=== PATIENT | male | born 1980 | race African-American/Black ===

== ENCOUNTER 2021-04-16 20:45 | Emergency (ER) | payer BC, SELFPAY ==
[2021-04-16] MEDS ORDERED: Ondansetron ODT 4 MG TAB ONE (21:48)
[2021-04-16 23:01] LABS: SARS-CoV-2 NAA Rapid Test Not Detected (NotDetected)
== END 2021-04-16 22:33 | disposition home or self-care (01) ==
LOC: CSHERS 20:45
DX: J39.9 Disease of upper respiratory tract, unspecified (principal); R11.2 Nausea with vomiting, unspecified; R19.7 Diarrhea, unspecified; Z20.822 Contact with and (suspected) exposure to COVID-19
CPT/HCPCS: 0240U; 71045; 93005; Q0162

== ENCOUNTER 2021-09-01 21:25 | Emergency (ER) | payer BC ==
[2021-09-01] MEDS ORDERED: predniSONE 20 MG TAB ONE (23:10)
== END 2021-09-01 23:15 | disposition home or self-care (01) ==
LOC: CSHERS 21:25
DX: J44.1 Chronic obstructive pulmonary disease with (acute) exacerbation (principal); F17.210 Nicotine dependence, cigarettes, uncomplicated
CPT/HCPCS: 71045; 87804; J7512; J7620

== ENCOUNTER 2021-09-07 22:31 | Emergency (ER) | payer OTHER, BC ==
[2021-09-08] MEDS ORDERED: Ketorolac Tromethamine 30 MG/ML VIAL ONE (00:55)
[2021-09-08] MEDS ORDERED: Dexamethasone 10 MG/ML VIAL ONE (00:55)
== END 2021-09-08 02:14 | disposition home or self-care (01) ==
LOC: CSHERS 22:31
DX: M54.42 Lumbago with sciatica, left side (principal); W19.XXXA Unspecified fall, initial encounter; Y92.89 Other specified places as the place of occurrence of the external cause; Y99.0 Civilian activity done for income or pay
CPT/HCPCS: 72100; 72170; 96372; J1100; J1885

== ENCOUNTER 2022-01-13 09:55 | Emergency (ER) | payer BC ==
[2022-01-13] MEDS ORDERED: Ketorolac Tromethamine 30 MG/ML VIAL ONE (10:47)
[2022-01-13] MEDS ORDERED: HYDROcodone/Acetaminophen 5/325 mg Tablet ONE (10:47)
== END 2022-01-13 11:45 | disposition home or self-care (01) ==
LOC: CSHERS 09:55
DX: M25.572 Pain in left ankle and joints of left foot (principal)
CPT/HCPCS: 96372; J1885

== ENCOUNTER 2022-02-17 03:14 | Emergency (ER) | payer BC ==
[2022-02-17] MEDS ORDERED: methylPREDNISolone Sod Succ/PF 125 MG/2 ML VIAL ONE (04:06)
[2022-02-17] MEDS ORDERED: Benzonatate 100 MG CAP ONE (04:15)
== END 2022-02-17 04:16 | disposition home or self-care (01) ==
LOC: CSHERS 03:14
DX: J06.9 Acute upper respiratory infection, unspecified (principal); F17.210 Nicotine dependence, cigarettes, uncomplicated
CPT/HCPCS: 96372; 99283; J2930

== ENCOUNTER 2022-04-27 20:05 | Emergency (ER) | payer BC | END 2022-04-27 21:36 | disposition home or self-care (01) | LOC: CSHERS 20:05 | DX: S83.92XA Sprain of unspecified site of left knee, initial encounter (principal); F17.210 Nicotine dependence, cigarettes, uncomplicated; X50.0XXA Overexertion from strenuous movement or load, initial encounter ==

== ENCOUNTER 2022-09-18 21:24 | Emergency (ER) | payer BC ==
[2022-09-18] MEDS ORDERED: Dexamethasone 10 MG/ML VIAL ONE (22:51)
[2022-09-18] MEDS ORDERED: Ketorolac Tromethamine 30 MG/ML VIAL ONE (22:51)
== END 2022-09-19 00:10 | disposition home or self-care (01) ==
LOC: CSHERS 21:24
DX: M70.42 Prepatellar bursitis, left knee (principal); M25.551 Pain in right hip; F17.210 Nicotine dependence, cigarettes, uncomplicated
CPT/HCPCS: 96372; J1100; J1885

== ENCOUNTER 2023-01-14 07:27 | Emergency (ER) | payer BC ==
[2023-01-14] MEDS ORDERED: Ketorolac Tromethamine 30 MG/ML VIAL ONE (08:02)
[2023-01-14 08:16] LABS: #Monocytes 0.8 10x3/uL (0.0-1.1); #Neutrophils 3.7 10x3/uL (1.5-8.4); %Basophils 0.4 % (0.0-2.0); %Eosinophils 0.4 % (0.0-6.0); %Lymphocytes 17.8 % (18.0-47.0); %Monocytes 14.4 % (0.0-10.0); %Neutrophils 66.6 % (40.0-75.0); Hematocrit 43.6 % (38.8-50.0); Hemoglobin 13.8 g/dL (13.5-17.5); Mean Corpuscular HGB CONC 31.7 g/dL (32.0-36.0); Mean Corpuscular Hemoglobin 27.1 pg (27.0-33.0); Mean Corpuscular Volume 85.7 fl (81.2-95.1); Mean Platelet Volume 9.3 fl (7.4-10.4); Platelet Count 202 10x3/uL (150-450); RBC Distribution Width 14.1 % (11.5-14.5); Red Blood Cell (RBC) Count 5.09 10x6/uL (4.32-5.72); White Blood Cell (WBC) Count 5.6 10x3/uL (3.5-10.5)
[2023-01-14 08:26] LABS: ALT (SGPT) 38 U/L (8-55); AST (SGOT) 30 U/L (5-34); Albumin 3.8 g/dL (3.5-5.0); Alkaline Phosphatase 26 U/L (40-110); Anion Gap 13 mmol/L (10-20); BUN (Urea Nitrogen) 10 mg/dL (8.9-20.6); Bilirubin, Total 0.3 mg/dL (0.2-1.2); Calc. Creatinine Clearance 0 mL/min (70-130); Calcium 8.6 mg/dL (7.8-10.44); Carbon Dioxide 24 mmol/L (22-29); Chloride 107 mmol/L (98-107); Estimated GFR 61; Globulin 2.4 g/dL (2.4-3.5); Glucose 106 mg/dL (70-105); Lipase 33 U/L (8-78); Protein, Total 6.2 g/dL (6.0-8.3); Sodium 140 mmol/L (136-145)
[2023-01-14 08:30] LABS: Troponin I Less than 0.010 ng/mL (< 0.028)
== END 2023-01-14 08:35 | disposition home or self-care (01) ==
LOC: CSHERS 07:27
DX: R07.2 Precordial pain (principal); J06.9 Acute upper respiratory infection, unspecified; F17.210 Nicotine dependence, cigarettes, uncomplicated
CPT/HCPCS: 71046; 80053; 83690; 84484; 85025; 93005; 96361; 96374; J1885

== ENCOUNTER 2023-07-22 17:07 | Emergency (ER) | payer BC ==
[2023-07-22 19:13] LABS: Influenza A by NAA Not Detected (NotDetected); Influenza B by NAA Not Detected (NotDetected); SARS-CoV-2 NAA Rapid Test Not Detected (NotDetected)
== END 2023-07-22 19:55 | disposition home or self-care (01) ==
LOC: CSHERS 17:07
DX: B34.9 Viral infection, unspecified (principal); F17.210 Nicotine dependence, cigarettes, uncomplicated
CPT/HCPCS: 99283

== ENCOUNTER 2024-12-25 14:33 | Emergency (ER) | payer BC, OTHER ==
[2024-12-25 15:48] LABS: Glucose, Urine (Dipstick) Normal (Negative); Leukocyte 25 (Negative); Protein, Urine (Dipstick) 15 mg/dl (Neg-Trace); Specific Gravity, Urine 1.025 (1.005-1.030)
[2024-12-25] MEDS ORDERED: Acetaminophen 500 MG TAB ONE (16:20)
[2024-12-25] MEDS ORDERED: Ketorolac Tromethamine 30 MG (1 mL) VIAL ONE (16:20)
[2024-12-25 16:22] LABS: CAUTI Indications for Culture Pelvic or flank pain; RBC/HPF 0-3 HPF (0-3)
[2024-12-25 16:23] LABS: Mucous/LPF 2+ LPF (<2+)
[2024-12-25 16:24] LABS: Bacteria/HPF 1+ HPF (None Seen)
[2024-12-25 16:25] LABS: Urine Culture Reflex No No
== END 2024-12-25 17:16 | disposition home or self-care (01) ==
LOC: CSHERS 14:33
DX: M54.50 Low back pain, unspecified (principal); F17.210 Nicotine dependence, cigarettes, uncomplicated
CPT/HCPCS: 72100; 81001; 96372; 99283; J1885

== ENCOUNTER 2025-01-28 15:15 | Emergency (ER) | payer BC ==
[2025-01-28] MEDS ORDERED: Ketorolac Tromethamine 30 MG (1 mL) VIAL ONE (17:12)
== END 2025-01-28 18:49 | disposition home or self-care (01) ==
LOC: CSHERS 15:15
DX: M25.551 Pain in right hip (principal); M87.9 Osteonecrosis, unspecified; F17.210 Nicotine dependence, cigarettes, uncomplicated
CPT/HCPCS: 96372; 99282; J1885